=== PATIENT | male | born 1950 | race Two or more races ===

== ENCOUNTER 2018-10-15 10:46 | Outpatient (CLI) | payer MEDICARE, MEDICAID ==
[~2018-10-15] VITALS: Ht 172.7 cm; Wt 88.9 kg
[2018-10-15] MEDS ORDERED: IOHEXOL-350 100 ML VIAL IV ONE (11:49)
[2018-10-15] MEDS ORDERED: IV NS 0.9% 250 ML IV ONE (11:49)
[2018-10-15] MEDS ORDERED: CT SWABBABLE VALVE TRANS SET 1 EA INFUS.SET MC ONE (11:49)
[2018-10-15] MEDS ORDERED: METOPROLOL TARTRATE INJ 5 MG/5 ML AMPUL ONE (12:06)
[2018-10-15] MEDS ORDERED: NITROGLYCERIN 0.4 MG/TAB BOTTLE SL ONE (12:30)
[2018-10-15] MEDS ORDERED: METOPROLOL TARTRATE INJ 5 MG/5 ML AMPUL IVP ONE (12:30)
[2018-10-15] MEDS ORDERED: IV NS 0.9% 500 ML IV ONE (12:30)
== END 2018-10-15 23:59 | disposition home or self-care (01) ==
LOC: CT 10:46
PROVIDERS: ATTEND Internal Medicine Interventional Cardiology
DX: I25.10 Atherosclerotic heart disease of native coronary artery without angina pectoris (principal); I77.810 Thoracic aortic ectasia; I10 Essential (primary) hypertension
CPT/HCPCS: 75574; J3490; J7050; Q9967